=== PATIENT | female | born 1970 | race Caucasian/White ===

== ENCOUNTER 2020-10-05 02:32 | Emergency (ER) | payer OTHER ==
[~2020-10-05 02:32] MED LIST: ASPIRIN EC81 MG PO; METFORMIN HCL750 MG PO; PROGESTERONE100 MG PO; ZYRTEC10 MG PO
[2020-10-05 02:55] LABS: BASOPHIL 0.4 % (0-2); EOSINOPHIL 1.6 % (0-5); HCT 39.1 % (37.0-47.0); HGB 13.1 g/dl (12.5-16.0); MCH 28.7 pg (25.0-31.0); MCHC 33.5 g/dL (32.0-36.0); MCV 85.7 fL (78.0-100.0); MONOCYTE 7.8 % (0-12); MPV 10.5 fL (6.0-9.5); NEUTROPHIL 63.1 % (41-80); NRBC 0; PLT 215 K/uL (150-400); RBC 4.56 M/uL (4.20-5.40); RDW 13.3 % (11.5-14.0); WBC 6.8 K/uL (4.0-10.5)
[2020-10-05 03:09] LABS: PTT 27.9 SECONDS (22.2-34.7)
[2020-10-05 03:10] LABS: D-DIMER < 0.27 ug/mLFEU (0.00-0.41); INR 0.99 (0.9-1.2); PROTHROMBIN TIME 12.4 SECONDS (11.4-13.6)
[2020-10-05 03:13] LABS: ALBUMIN 3.3 g/dL (3.4-5.0); BILIRUBIN - TOTAL 0.4 mg/dL (0.2-1.0); BUN/CREAT RATIO (CALC) 18.4 RATIO; CREATININE 0.76 mg/dL (0.51-0.95); GLOBULIN (CALCULATION) 3.2 g/dL; MAGNESIUM 1.8 mg/dL (1.8-2.4); POTASSIUM 3.4 mmol/L (3.5-5.1); TOTAL PROTEIN 6.5 g/dL (6.4-8.2)
[2021-03-09] MEDS ORDERED: ALLEGRA ALLERG180 MG PO (13:51)
[2021-03-09] MEDS ORDERED: ZOLOFT50 MG PO (13:51)
[2021-03-09] MEDS ORDERED: ASPIRIN325 MG PO (13:51)
[2021-03-16] MEDS ORDERED: VIT D PO (09:09)
== END 2020-10-05 04:33 | disposition other institution (70) ==
LOC: FER 02:32
PROVIDERS: Emergency Medicine
DX: R53.1 Weakness (principal); R26.89 Other abnormalities of gait and mobility; R20.0 Anesthesia of skin; R29.703 NIHSS score 3; E66.9 Obesity, unspecified; Z87.42 Personal history of other diseases of the female genital tract
CPT/HCPCS: 36415; 70450; 71045; 80053; 83735; 84484; 85025; 85379; 85610; 85730; 93005

== ENCOUNTER 2021-02-11 00:29 | Emergency (ER) | payer OTHER ==
[2021-02-11 01:09] LABS: BASOPHIL 0.2 % (0-2); EOSINOPHIL 1.7 % (0-5); HCT 33.5 % (37.0-47.0); HGB 11.2 g/dl (12.5-16.0); LYMPHOCYTE 19.4 % (15-48); MCH 28.7 pg (25.0-31.0); MCHC 33.4 g/dL (32.0-36.0); MCV 85.9 fL (78.0-100.0); MONOCYTE 8.8 % (0-12); MPV 10.6 fL (6.0-9.5); NEUTROPHIL 69.6 % (41-80); NRBC 0; PLT 203 K/uL (150-400); WBC 6.5 K/uL (4.0-10.5)
[2021-02-11 01:13] LABS: BILIRUBIN NEGATIVE (NEGATIVE); BLOOD 3+ Ery/uL (NEGATIVE); CLARITY HAZY (CLEAR); COLOR YELLOW (YELLOW); GLUCOSE (U) NORMAL (NORMAL); LEUKOCYTES NEGATIVE Leu/uL (NEGATIVE); NITRITE NEGATIVE (NEGATIVE); PROTEIN NEGATIVE (NEGATIVE); SPECIFIC GRAVITY <=1.005 (1.001-1.030); UROBILINOGEN 0.2 mg/dL (0.2-1.0)
[2021-02-11 01:21] LABS: URINARY WBC RARE
[2021-02-11 01:21] LABS: INR 1.06 (0.9-1.2); PROTHROMBIN TIME 13.1 SECONDS (11.4-13.6)
[2021-02-11 01:23] LABS: D-DIMER 0.32 ug/mLFEU (0.00-0.41)
[2021-02-11 01:33] LABS: ALBUMIN 3.1 g/dL (3.4-5.0); BILIRUBIN - TOTAL 0.7 mg/dL (0.2-1.0); CREATININE 0.75 mg/dL (0.51-0.95); GLOBULIN (CALCULATION) 3.3 g/dL; POTASSIUM 3.2 mmol/L (3.5-5.1); TOTAL PROTEIN 6.4 g/dL (6.4-8.2)
[2021-02-11 01:34] LABS: LACTIC ACID 1.8 mmol/L (0.4-1.9)
[2021-02-11] MEDS ORDERED: ZOFRAN4 M1 PO (04:55)
[2021-02-11] MEDS ORDERED: PROTONIX 40MG T40 MG PO (04:58)
[2021-03-09] MEDS ORDERED: ZOLOFT50 MG PO (13:51)
[2021-03-09] MEDS ORDERED: ALLEGRA ALLERG180 MG PO (13:51)
[2021-03-09] MEDS ORDERED: ASPIRIN325 MG PO (13:51)
[2021-03-16] MEDS ORDERED: VIT D PO (09:09)
== END 2021-02-11 05:24 | disposition home or self-care (01) ==
LOC: FER 00:29
PROVIDERS: Emergency Medicine
DX: R10.11 Right upper quadrant pain (principal); R10.12 Left upper quadrant pain; N83.202 Unspecified ovarian cyst, left side; R11.0 Nausea; I10 Essential (primary) hypertension; E11.9 Type 2 diabetes mellitus without complications; Z86.73 Personal history of transient ischemic attack (TIA), and cerebral infarction without residual deficits; Z90.49 Acquired absence of other specified parts of digestive tract; Z98.890 Other specified postprocedural states; Z79.82 Long term (current) use of aspirin; Z79.84 Long term (current) use of oral hypoglycemic drugs
CPT/HCPCS: 36415; 71045; 80053; 81001; 82150; 83605; 83690; 84484; 85025; 85379; 85610; 93005; C9113; J2270; J2405; Q9967

== ENCOUNTER → 2021-03-16 | Day surgery (SDC) | payer OTHER ==
[~2021-03-16] VITALS: Ht 157.5 cm; Wt 107.0 kg
[~2021-03-16] MED LIST changes: +ALLEGRA ALLERG180 MG PO; +ASPIRIN325 MG PO; +PROTONIX 40MG T40 MG PO; +VIT D PO; +ZOFRAN4 M1 PO; +ZOLOFT50 MG PO
[2021-03-16 09:09] LABS: HCG (URINE) SCREEN NEGATIVE (NEGATIVE)
== END | disposition home or self-care (01) ==
LOC: FAS 08:52
PROVIDERS: Anesthesiology
DX: K22.2 Esophageal obstruction (principal); K21.00 Gastro-esophageal reflux disease with esophagitis, without bleeding; K31.89 Other diseases of stomach and duodenum; K44.9 Diaphragmatic hernia without obstruction or gangrene; G89.29 Other chronic pain; R10.13 Epigastric pain; E28.2 Polycystic ovarian syndrome; R16.1 Splenomegaly, not elsewhere classified; F41.9 Anxiety disorder, unspecified; E66.01 Morbid (severe) obesity due to excess calories; Z68.41 Body mass index [BMI] 40.0-44.9, adult; Z86.010 Personal history of colon polyps; Z79.82 Long term (current) use of aspirin; Z79.84 Long term (current) use of oral hypoglycemic drugs; Z79.899 Other long term (current) drug therapy
CPT/HCPCS: 84703; J2250; J2405; J2704; J7120

== ENCOUNTER 2021-10-21 06:39 | Day surgery (SDCO) | payer OTHER ==
[~2021-10-21] VITALS: Ht 157.5 cm; Wt 103.9 kg
[~2021-10-21 06:39] MED LIST changes: +FERROUS SULFATE PO; -VIT D PO; +VIT D3 PO; +VITAMIN B-121000 MC1 PO
[2021-10-21 07:28] LABS: BILIRUBIN NEGATIVE (NEGATIVE); BLOOD NEGATIVE Ery/uL (NEGATIVE); CLARITY CLEAR (CLEAR); COLOR YELLOW (YELLOW); GLUCOSE (U) NORMAL (NORMAL); LEUKOCYTES NEGATIVE Leu/uL (NEGATIVE); NITRITE NEGATIVE (NEGATIVE); PROTEIN NEGATIVE (NEGATIVE); SPECIFIC GRAVITY 1.015 (1.001-1.030); UROBILINOGEN 0.2 mg/dL (0.2-1.0); pH 7.5 (5.0-9.0)
[2021-10-21 07:29] LABS: HCG (URINE) SCREEN NEGATIVE (NEGATIVE)
[2021-10-21 07:33] LABS: HCT 36.9 % (37.0-47.0); HGB 12.3 g/dl (12.5-16.0); MCHC 33.3 g/dL (32.0-36.0); MCV 83.9 fL (78.0-100.0); MPV 9.9 fL (6.0-9.5); RBC 4.4 M/uL (4.20-5.40); RDW 14.8 % (11.5-14.0); WBC 5.6 K/uL (4.0-10.5)
[2021-10-21 07:42] LABS: SQUAMOUS EPITHELIAL CELLS RARE; URINARY WBC RARE
[2021-10-22 07:01] LABS: BASOPHIL 0.3 % (0-2); EOSINOPHIL 0.1 % (0-5); HCT 32.1 % (37.0-47.0); HGB 10.2 g/dl (12.5-16.0); LYMPHOCYTE 15.6 % (15-48); MCH 27.2 pg (25.0-31.0); MCHC 31.8 g/dL (32.0-36.0); MCV 85.6 fL (78.0-100.0); MONOCYTE 6.9 % (0-12); MPV 9.9 fL (6.0-9.5); NEUTROPHIL 76.6 % (41-80); NRBC 0; PLT 159 K/uL (150-400); RBC 3.75 M/uL (4.20-5.40); RDW 15.3 % (11.5-14.0); WBC 7.8 K/uL (4.0-10.5)
[2021-10-22 07:20] LABS: INR 1.24 (0.9-1.2); PROTHROMBIN TIME 14.9 SECONDS (11.8-13.4); PTT 29.8 SECONDS (24.4-34.7)
[2021-10-22 07:32] LABS: ALBUMIN 2.9 g/dL (3.4-5.0); BILIRUBIN - TOTAL 0.6 mg/dL (0.2-1.0); BUN/CREAT RATIO (CALC) 5.9 RATIO; CREATININE 0.68 mg/dL (0.51-0.95); GLOBULIN (CALCULATION) 2.5 g/dL; POTASSIUM 3.7 mmol/L (3.5-5.1); TOTAL PROTEIN 5.4 g/dL (6.4-8.2)
[2021-10-22] MEDS ORDERED: KETOROLAC TROME10 MG PO (12:21)
[2021-10-22] MEDS ORDERED: FAMOTIDINE20 MG/2 ML PO (12:21)
== END 2021-10-22 13:35 | disposition home or self-care (01) ==
LOC: FAS 06:39 → FMS 08:00 → EDSTATUS 08:00 → FMS 14:30
PROVIDERS: ADMIT Specialist
DX: N80.0 Endometriosis of uterus (principal); D27.1 Benign neoplasm of left ovary; N73.6 Female pelvic peritoneal adhesions (postinfective); D25.9 Leiomyoma of uterus, unspecified; N92.1 Excessive and frequent menstruation with irregular cycle; D50.0 Iron deficiency anemia secondary to blood loss (chronic); Z98.51 Tubal ligation status
CPT/HCPCS: 36415; 80053; 81001; 84703; 85025; 85610; 85730; 86304; 86850; 86900; 86901; 87088; 93005; G0378; J0690; J1100; J1170; J1650; J2250; J2405; J2550; J2704; J3010; J7120; Q9968